=== PATIENT | female | born 1975 | race Caucasian/White ===

== ENCOUNTER → 2017-08-13 | Outpatient (CLI) | payer OTHER, BC ==
[~2017-08-13] MED LIST: ACETAMINOPHEN-1 EAC1 PO; ALEVE COLD & S1 EACH PO; CLONIDINE0.1 PO; COZAAR 25 MG TA25 MG PO; LANTUS SC; LEVAQUIN 500 M500 M2 PO; LEXAPRO 10 MG T10 M2 PO; MACROBID 100 M100 M1 PO; MAGOX 400400 MG PO; MEDROLDOSEPACK PO; METFORMIN HCL500 MG PO; NOVOLOG100 UNIT/1 SQ; OMEPRAZOLE10 MG PO; PROAIR HFA8.5 GM INH; PROMETHAZINE D480 ML PO; PULMICORT200 MCG IH; SINGULAIR 10 MG10 M1 PO; TESSALON PERLE100 MG PO; UNICOMPLEX M TA1 TA1 PO; ZOFRAN ODT4 MG PO
== END ==
LOC: M.RAD 09:24
DX: M47.896 Other spondylosis, lumbar region (principal)

== ENCOUNTER 2018-09-27 14:11 | Emergency (ER) | payer BC ==
[~2018-09-27] VITALS: Ht 154.9 cm; Wt 105.7 kg
[2018-09-27] MEDS ORDERED: KEFLEX500 M1 PO (14:33)
[2018-09-27] MEDS ORDERED: SSD CREAM 1% 5050 GM TOP (14:33)
[2018-09-27] MEDS ORDERED: NORCO 5-325 TA1 EACH PO (14:33)
[2018-09-27] MEDS ORDERED: IBUPROFEN 800800 M1 PO (14:33)
[2018-09-27 14:41] VITALS: BP 204/78
== END 2018-09-27 14:41 | disposition home or self-care (01) ==
LOC: M.ERS 14:11
DX: L55.0 Sunburn of first degree (principal); J45.909 Unspecified asthma, uncomplicated; Z90.89 Acquired absence of other organs; Z90.710 Acquired absence of both cervix and uterus; Z90.49 Acquired absence of other specified parts of digestive tract

== ENCOUNTER 2019-09-07 01:43 | Inpatient (IN) | payer BC ==
[2019-09-07] VITALS (7 sets, daily range): BP systolic 137–155; BP diastolic 53–69
[~2019-09-07] VITALS: Ht 154.9 cm; Wt 106.2 kg
[~2019-09-07 01:43] MED LIST changes: +IBUPROFEN 800800 M1 PO; +KEFLEX500 M1 PO; +NORCO 5-325 TA1 EACH PO; +SSD CREAM 1% 5050 GM TOP
[2019-09-07] MEDS ORDERED: PROTONIX40 M2 PO (02:00)
[2019-09-07] MEDS ORDERED: COZAAR 25 MG TA25 M1 PO (02:00)
[2019-09-07] MEDS ORDERED: SPIRONOLACTONE25 MG PO (02:01)
[2019-09-07] MEDS ORDERED: SPIRIVA INH (02:02)
[2019-09-07] MEDS ORDERED: METOPROLOL TART75 MG PO (02:03)
[2019-09-07] MEDS ORDERED: NORVASC 2.5 MG2.5 M1 PO (02:03)
[2019-09-07] MEDS ORDERED: TRESIBA100 UNIT/1 SUBQ (02:04)
[2019-09-07] MEDS ORDERED: KLOR-CON M2020 MEQ PO (02:05)
[2019-09-07] MEDS ORDERED: PHENAZOPYRIDIN200 M2 PO (02:07)
[2019-09-07] MEDS ORDERED: BACTRIM DS TAB1 EAC1 PO (02:09)
[2019-09-07 03:02] LABS: HEMATOCRIT 38.5 % (37.0-47.0); HEMOGLOBIN 13.1 gm/dL (12.0-15.0); MCH 27.1 pg (26.0-34.0); MCHC 34.1 g/dL (28.0-37.0); MCV 79.6 fL (80.0-100.0); MPV 9.6 fl. (7.2-11.1); NUCLEATED RBCS 0 /100WBC; PLATELET COUNT* 259 thou/uL (150-400); RBC 4.84 mil/uL (4.20-5.00); RDW-CV 15.5 % (10.5-14.5); WBC 14.9 thou/uL (4.0-11.0)
[2019-09-07 03:07] LABS: CALCIUM 9.2 mg/dL (8.5-10.1); CREATININE 1.2 mg/dL (0.6-1.3)
[2019-09-07 03:11] LABS: ALBUMIN 3.7 g/dL (3.4-5.0); MAGNESIUM 1.2 mg/dL (1.8-2.4); TOTAL BILIRUBIN 0.6 mg/dL (<0.1-1.0); TOTAL PROTEIN 7.7 g/dL (6.4-8.2)
--- NOTE | 2019-09-07 03:26 | NUR ---
PATIENT INFIRMED SEVERAL TIMES THAT A URINE SPECIMAN WAS NEEDED FOR TESTING. PATIENT STATES EACH TIME SHE CANNOT VOID. PATIENT RECEIVING IV SALINE AT THIS TIME.
[2019-09-07 03:49] LABS: URINE BLOOD NEGATIVE (Negative); URINE CLARITY CLEAR; URINE COLOR ORANGE; URINE GLUCOSE-RANDOM 1+ (Negative); URINE KETONES TRACE (Negative); URINE LEUKOCYTES-REFLEX NEGATIVE (Negative); URINE SPECIFIC GRAVITY 1.025 (1.005-1.030)
[2019-09-07 03:54] LABS: ACETEST (KETONE CONFIRMATORY) Negative (Negative); ICTOTEST (BILI CONFIRMATORY) Negative (Negative); URINE BILIRUBIN 1+ (Negative); URINE PROTEIN ND (Negative); URINE REDUCING SUBSTANCE NEGATIVE (Negative)
[2019-09-07 03:55] LABS: URINE NITRITE-REFLEX ND (Negative); URINE UROBILINOGEN ND E.U./dl (0.2-1.0)
[2019-09-07 04:00] LABS: CASTS None Seen /LPF (None Seen); MUCUS 0-3 Light strn/LPF (None Seen); SQUAMOUS 4-10 Moderate /LPF (0-3)
[2019-09-07 04:01] LABS: BACTERIA-REFLEX 1-9 Few /HPF (None Seen); CRYSTALS None Seen /LPF (None Seen); URINE RBC None Seen /HPF (0-2); URINE WBC-REFLEX 0-5 Rare /HPF (0-5)
[2019-09-07 04:04] LABS: ABSOLUTE EOSINOPHILS 0.1 thou/uL (0.0-0.7); ABSOLUTE LYMPHOCYTES 0.3 thou/uL (0.8-5.3); ABSOLUTE MONOCYTES 0.1 thou/uL (0.0-1.2); ABSOLUTE NEUTROPHILS 14.3 thou/uL (1.6-8.1)
[2019-09-07 04:05] LABS: PLATELET ESTIMATE ADEQUATE
[2019-09-07] MEDS ORDERED: NOVOLOG100 UNIT/1 SUBQ (06:22)
[2019-09-07] MEDS ORDERED: CARAFATE1 GM PO (06:22)
[2019-09-07] MEDS ORDERED: TRULICITY0.75 MG/0. (06:23)
[2019-09-07] MEDS ORDERED: TYLENOL PM EX-1 EACH PO (06:23)
[2019-09-07] MEDS ORDERED: HYDROCHLOROTHIA25 M2 PO (06:24)
--- NOTE | 2019-09-07 07:40 | NUR ---
RECEIVED PATIENT REPORT FROM ER NURSE JACK AT 0540. PATIENT BROUGHT UP TO FLOOR AT 0555. PATIENT ORIENTED TO UNIT, ROOM, BED, CALL-LIGHT, AND HOSPITAL POLICY. ASSESSMENT COMPLETED CHARTED. PATIENT IS NSR ON THE MONITOR. PATIENT REPORTED GENERALIZED PAIN. PHYSICIAN NOTIFIED, NEW ORDERS RECEIVED, SEE EMAR FOR DETAILS. FALL PRECAUTIONS IN PLACE FOR PATIENT SAFETY. HOURLY ROUNDING IN PLACE FOR PATIENT SAFETY. CLWR.
--- NOTE | 2019-09-07 18:06 | NUR ---
VSS.CHEMIST INSTRUMENTATION IN PLACE.PAIN MANAGED WELL WITH MEDICATIONS.NO N/V.DIET ADVANCED TO CARB CONTROL.CALL LIGHT WITHIN REACH.WILL CONTINUE TO MONITOR FOR DURATION OF SHIFT.
[2019-09-07] MEDS ORDERED: VENTOLIN HFA INH8 GM INH (22:08)
[2019-09-08] VITALS: BP 122/65
[2019-09-08 04:00] VITALS: BP 138/76
[2019-09-08 04:52] LABS: ABSOLUTE EOSINOPHILS 0.3 thou/uL (0.0-0.7); ABSOLUTE LYMPHOCYTES 1.8 thou/uL (0.8-5.3); ABSOLUTE MONOCYTES 0.3 thou/uL (0.0-1.2); ABSOLUTE NEUTROPHILS 4.1 thou/uL (1.6-8.1); BASOPHILS 0.3 %; EOSINOPHILS 4.7 %; HEMATOCRIT 36.4 % (37.0-47.0); HEMOGLOBIN 12.2 gm/dL (12.0-15.0); MCH 26.8 pg (26.0-34.0); MCHC 33.4 g/dL (28.0-37.0); MCV 80.2 fL (80.0-100.0); MONOCYTES 4.8 %; NUCLEATED RBCS 0 /100WBC; PLATELET COUNT* 220 thou/uL (150-400); POLYS 63.2 %; RBC 4.54 mil/uL (4.20-5.00); RDW-CV 15.2 % (10.5-14.5); WBC 6.5 thou/uL (4.0-11.0)
[2019-09-08 05:04] LABS: CREATININE 0.8 mg/dL (0.6-1.3); POTASSIUM 3.5 mmol/L (3.5-5.1)
--- NOTE | 2019-09-08 05:58 | NUR ---
PT IS ABLE TO COMMUNICATE HER NEEDS TO STAFF EFFECTIVELY. CURRENT PAIN MEDICATION REGIMEN HAS BEEN ADEQUATE FOR CONTROLLING HER PAIN UP TO THIS TIME. NO RECURRENT NAUSEA/ VOMITING REPORTED BY PT SO FAR THIS SHIFT. PT UP AD NAMRATA AND STEADY AT THIS TIME.
[2019-09-08 07:20] VITALS: BP 143/66
--- NOTE | 2019-09-08 09:28 | NUR ---
INCORRECT BLOOD SUGAR TAKEN AT 0911AM. DISREGARD
[2019-09-08 12:08] VITALS: BP 131/56
[2019-09-08 13:14] LABS: URINE BILIRUBIN NEGATIVE (Negative); URINE BLOOD NEGATIVE (Negative); URINE CLARITY CLEAR; URINE COLOR ORANGE; URINE GLUCOSE-RANDOM 1+ (Negative); URINE KETONES TRACE (Negative); URINE LEUKOCYTES-REFLEX TRACE (Negative); URINE PROTEIN 2+ (Negative); URINE UROBILINOGEN >= 8.0 E.U./dl (0.2-1.0)
[2019-09-08 13:15] LABS: URINE NITRITE-REFLEX POSITIVE (Negative)
[2019-09-08 13:17] LABS: BACTERIA-REFLEX 1-9 Few /HPF (None Seen); CASTS None Seen /LPF (None Seen); CRYSTALS None Seen /LPF (None Seen); MUCUS 0-3 Light strn/LPF (None Seen); SQUAMOUS 4-10 Moderate /LPF (0-3); URINE RBC 0-2 Rare /HPF (0-2); URINE WBC-REFLEX 6-15 Few /HPF (0-5)
--- NOTE | 2019-09-08 15:38 | NUR ---
CM SPOKE TO THE PT TO DISCUSS HER HOME SITUATION, DISCHAGRE PLANNING, AND TO INFORM OF THE ROLE OF CM. PT A&O, INDEPENDENT, AND ACTIVE. PT DOES NOT ANTICIPATE ANY D/C PLANNING NEEDS AT THIS TIME. CM WILL REMAIN AVAILABLE TO ASSIST AND FOLLOW NEEDED.
[2019-09-08 16:00] VITALS: BP 134/74
[2019-09-08 20:59] VITALS: BP 143/65
[2019-09-09] VITALS: BP 126/62
[2019-09-09 04:00] VITALS: BP 147/67
--- NOTE | 2019-09-09 05:50 | NUR ---
PT IS ABLE TO COMMUNICATE HER NEEDS TO STAFF EFFECTIVELY. CURRENT PAIN MEDICATION REGIMEN HAS BEEN ADEQUATE FOR CONTROLLING HER PAIN UP TO THIS TIME. POSSIBLE DISCHARGE LATER TODAY.
[2019-09-09 06:02] LABS: ABSOLUTE EOSINOPHILS 0.3 thou/uL (0.0-0.7); ABSOLUTE LYMPHOCYTES 2.4 thou/uL (0.8-5.3); ABSOLUTE MONOCYTES 0.4 thou/uL (0.0-1.2); ABSOLUTE NEUTROPHILS 4.7 thou/uL (1.6-8.1); BASOPHILS 0.2 %; EOSINOPHILS 3.4 %; HEMATOCRIT 31.7 % (37.0-47.0); HEMOGLOBIN 10.8 gm/dL (12.0-15.0); LYMPHOCYTES 31.2 %; MCH 27.4 pg (26.0-34.0); MCV 80.5 fL (80.0-100.0); MPV 8.9 fl. (7.2-11.1); NUCLEATED RBCS 0 /100WBC; PLATELET COUNT* 226 thou/uL (150-400); POLYS 60.2 %; RBC 3.94 mil/uL (4.20-5.00); RDW-CV 15.1 % (10.5-14.5); WBC 7.8 thou/uL (4.0-11.0)
[2019-09-09 06:10] LABS: CALCIUM 8.2 mg/dL (8.5-10.1); CREATININE 0.8 mg/dL (0.6-1.3); POTASSIUM 3.8 mmol/L (3.5-5.1)
[2019-09-09 08:16] VITALS: BP 135/72
[2019-09-09 11:14] VITALS: BP 135/72
[2019-09-09 11:49] VITALS: BP 145/55
--- NOTE | 2019-09-09 14:14 | NUR ---
Nutrition: Consult received for poor intake. Pt stated she hadn't been eating like normal d/t just not feeling well recently. She did eat lunch well today. She is near her usual wt of around 230#. CHO controlled diet. Meds, labs, hx noted. Likely to disch. Low nutrition risk.
[2019-09-09] MEDS ORDERED: AUGMENTIN 875-1 EACH PO (14:22)
--- NOTE | 2019-09-09 14:32 | NUR ---
NUTRITION: CONSULT RECEIVED FOR POOR INTAKE. PT DENIED POOR INTAKE, STATED SHE IS EATING VERY WELL. 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 CHO CONTROLLED DIET. NEAR USUAL WT OF ~230#. MEDS, LABS, HX NOTED. LOW NUTRITION RISK.
--- NOTE | 2019-09-09 14:50 | NUR ---
ASSUMED CARE OF PT AROUND 0730 THIS AM. REFER TO ASSESSMENT. PT EDUCATED ON DISCHARGE ORDERS AND VERBALIZES UNDERSTANDING. PT'S SPOUSE TRANSPORTED HOME AT THIS TIME. NO OTHER CONCERNS AT THIS TIME.
== END 2019-09-09 14:45 | disposition home or self-care (01) | DRG 638 ==
LOC: M.ERS 01:43 → M.TBA-ER 05:29 → M.2W 05:29
PROVIDERS: Emergency Medicine; ADMIT Internal Medicine
DX: E11.65 Type 2 diabetes mellitus with hyperglycemia (principal); N39.0 Urinary tract infection, site not specified; E87.1 Hypo-osmolality and hyponatremia; Z68.41 Body mass index [BMI] 40.0-44.9, adult; E86.0 Dehydration; E87.6 Hypokalemia; E83.42 Hypomagnesemia; I10 Essential (primary) hypertension; F41.9 Anxiety disorder, unspecified; E66.01 Morbid (severe) obesity due to excess calories; J45.909 Unspecified asthma, uncomplicated; Z90.49 Acquired absence of other specified parts of digestive tract; Z90.710 Acquired absence of both cervix and uterus; Z79.84 Long term (current) use of oral hypoglycemic drugs; Z79.4 Long term (current) use of insulin; Z79.899 Other long term (current) drug therapy; Z88.1 Allergy status to other antibiotic agents

== ENCOUNTER 2020-01-24 11:42 | Emergency (ER) | payer BC ==
[~2020-01-24] VITALS: Ht 154.9 cm; Wt 101.2 kg
[~2020-01-24 11:42] MED LIST changes: -KLOR-CON20 ME1 PO; -MAGNESIUM OXID240 MG PO
[2020-01-24] MEDS ORDERED: KLOR-CON20 ME1 PO (15:57)
[2020-01-24] MEDS ORDERED: MAGNESIUM OXID240 MG PO (15:57)
[2020-01-24 17:17] LABS: MAGNESIUM 1.8 mg/dL (1.8-2.4)
[2020-01-24 17:53] VITALS: BP 148/65
--- NOTE | 2020-01-25 12:59 | EKG ---
[place] [address] ELECTROCARDIOGRAM REPORT Name: MICHELINEKAYLA WALDEN Room: [facility]#: [id number] Admission: 01/24/20 Attend Phys: Discharge: 01/24/20 Date of : 75 Date of Service: 01/24/20 1158 Report #: [id number] THIS REPORT FOR: //name// [facility] ED Test Date: 2020-01-24 Test Time: 11:58:37 Pat Name: KAYLA DEL VALLE Department: Room: Gender: Publication Manager: [facility] : 1975 Requested By: Ryne Arias Order Number: [id number] MD: Leo Sexton Measurements Intervals [place] Rate: 62 P: -5 NE: 144 QRS: -16 QRSD: 103 T: 0 QT: 426 QTc: 433 Interpretive Statements Sinus rhythm Inferior infarct, old, possible Delayed R wave progression Baseline wander in lead(s) II,III,aVF No previous ECG available for comparison Electronically Signed On 01-25-2020 12:59:52 CDT by Leo Sexton [email or web address] <ELECTRONICALLY SIGNED> By: Leo Sexton MD, FACC 01/25/20 1259 1158 1158 Leo Sexton MD, [facility] /EPI
== END 2020-01-24 17:54 | disposition home or self-care (01) ==
LOC: M.ERS 11:42
PROVIDERS: Family Medicine
DX: E87.6 Hypokalemia (principal); E83.42 Hypomagnesemia; I10 Essential (primary) hypertension; E11.9 Type 2 diabetes mellitus without complications; J45.909 Unspecified asthma, uncomplicated; M79.7 Fibromyalgia; Z90.49 Acquired absence of other specified parts of digestive tract; Z90.710 Acquired absence of both cervix and uterus; Z79.4 Long term (current) use of insulin; Z88.1 Allergy status to other antibiotic agents

== ENCOUNTER → 2020-01-24 | Outpatient (CLI) | payer BC ==
[~2020-01-24] MED LIST changes: +AUGMENTIN 875-1 EACH PO; +BACTRIM DS TAB1 EAC1 PO; +CARAFATE1 GM PO; +COZAAR 25 MG TA25 M1 PO; +HYDROCHLOROTHIA25 M2 PO; +KLOR-CON M2020 MEQ PO; +KLOR-CON20 ME1 PO; +MAGNESIUM OXID240 MG PO; +METOPROLOL TART75 MG PO; +NORVASC 2.5 MG2.5 M1 PO; +NOVOLOG100 UNIT/1 SUBQ; +PHENAZOPYRIDIN200 M2 PO; +PROTONIX40 M2 PO; +SPIRIVA INH; +SPIRONOLACTONE25 MG PO; +TRESIBA100 UNIT/1 SUBQ; +TRULICITY0.75 MG/0.; +TYLENOL PM EX-1 EACH PO; +VENTOLIN HFA INH8 GM INH
[2020-01-24 10:21] LABS: CALCIUM 8.7 mg/dL (8.5-10.1); CREATININE 1.1 mg/dL (0.6-1.3); MAGNESIUM 1.4 mg/dL (1.8-2.4)
[2020-01-24 10:25] LABS: POTASSIUM 2.7 mmol/L (3.5-5.1)
== END ==
LOC: M.LAB 09:15
DX: Z00.00 Encounter for general adult medical examination without abnormal findings (principal)

== ENCOUNTER → 2020-01-25 | Outpatient (CLI) | payer BC ==
[~2020-01-25] MED LIST changes: +KLOR-CON20 ME1 PO; +MAGNESIUM OXID240 MG PO
[2020-01-25 12:24] LABS: CALCIUM 8.6 mg/dL (8.5-10.1); CREATININE 0.9 mg/dL (0.6-1.3); MAGNESIUM 1.6 mg/dL (1.8-2.4); POTASSIUM 3.6 mmol/L (3.5-5.1)
== END ==
LOC: M.LAB 10:47
DX: Z00.00 Encounter for general adult medical examination without abnormal findings (principal)

== ENCOUNTER 2020-02-19 11:54 | Emergency (ER) | payer BC ==
[~2020-02-19] VITALS: Ht 154.9 cm; Wt 87.5 kg
[2020-02-19 12:10] LABS: URINE BLOOD NEGATIVE (Negative); URINE CLARITY CLEAR; URINE COLOR YELLOW; URINE GLUCOSE-RANDOM NEGATIVE (Negative); URINE LEUKOCYTES-REFLEX NEGATIVE (Negative); URINE NITRITE-REFLEX NEGATIVE (Negative); URINE PROTEIN 2+ (Negative); URINE SPECIFIC GRAVITY 1.025 (1.005-1.030)
[2020-02-19 12:12] LABS: URINE BILIRUBIN 3+ (Negative); URINE KETONES 3+ (Negative)
[2020-02-19 12:13] LABS: ICTOTEST (BILI CONFIRMATORY) Positive (Negative)
[2020-02-19 12:19] LABS: SQUAMOUS >10 Many /LPF (0-3)
[2020-02-19 12:21] LABS: BACTERIA-REFLEX 1-9 Few /HPF (None Seen); MUCUS >6 Heavy strn/LPF (None Seen); URINE RBC None Seen /HPF (0-2); URINE WBC-REFLEX None Seen /HPF (0-5)
[2020-02-19 12:22] LABS: CRYSTALS None Seen /LPF (None Seen); HYALINE CASTS 0-3 Few /LPF (None Seen)
[2020-02-19 13:02] LABS: ABSOLUTE BASOPHILS 0.1 thou/uL (0.0-0.2); ABSOLUTE EOSINOPHILS 0.2 thou/uL (0.0-0.7); ABSOLUTE LYMPHOCYTES 1.5 thou/uL (0.8-5.3); ABSOLUTE MONOCYTES 0.7 thou/uL (0.0-1.2); ABSOLUTE NEUTROPHILS 7.7 thou/uL (1.6-8.1); BASOPHILS 0.6 %; EOSINOPHILS 1.5 %; HEMATOCRIT 40.1 % (37.0-47.0); HEMOGLOBIN 13.4 gm/dL (12.0-15.0); LYMPHOCYTES 14.8 %; MCH 26.1 pg (26.0-34.0); MCHC 33.3 g/dL (28.0-37.0); MCV 78.4 fL (80.0-100.0); MONOCYTES 7.2 %; MPV 10.4 fl. (7.2-11.1); NUCLEATED RBCS 0 /100WBC; PLATELET COUNT* 225 thou/uL (150-400); POLYS 75.9 %; RBC 5.11 mil/uL (4.20-5.00); RDW-CV 14.7 % (10.5-14.5); WBC 10.1 thou/uL (4.0-11.0)
[2020-02-19 13:19] LABS: CALCIUM 8.8 mg/dL (8.5-10.1); POTASSIUM 3.1 mmol/L (3.5-5.1)
[2020-02-19 13:32] LABS: MAGNESIUM 1.6 mg/dL (1.8-2.4); TOTAL BILIRUBIN 0.5 mg/dL (<0.1-1.0); TOTAL PROTEIN 7.2 g/dL (6.4-8.2)
--- NOTE | 2020-02-19 17:13 | EKG ---
[place] [address] ELECTROCARDIOGRAM REPORT Name: MICHELINEWINKAYLA Room: [facility]#: [id number] Admission: 02/19/20 Attend Phys: Discharge: Date of : 75 Date of Service: 02/19/20 1234 Report #: [id number] THIS REPORT FOR: //name// [facility] ED Test Date: 2020-02-19 Test Time: 12:34:45 Pat Name: KAYLA DEL VALLE Department: Room: Gender: Maintenance And Utilities Supervisor: [facility] : 1975 Requested By: Brinda Richards Order Number: [id number] MD: Waldemar Mcdonnell Measurements Intervals [place] Rate: 75 P: -11 TN: 149 QRS: -21 QRSD: 103 T: -10 QT: 387 QTc: 433 Interpretive Statements Sinus rhythm Probable left ventricular hypertrophy Inferior infarct, old Baseline wander in lead(s) II,III,aVR,aVL,aVF,V2,V3,V4 Compared to ECG 01/24/2020 11:58:37 Poor R-wave progression no longer present Myocardial infarct finding still present Electronically Signed On 02-19-2020 17:13:43 CDT by Waldemar Mcdonnell [email or web address] <ELECTRONICALLY SIGNED> By: Shelby Mcdonnell MD, [facility] 02/19/20 1713 1234 1234 Shelby Mcdonnell MD, [facility] /EPI
[2020-02-19 18:27] VITALS: BP 130/47
== END 2020-02-19 18:13 | disposition short-term general hospital (02) ==
LOC: M.ERS 11:54
PROVIDERS: Nurse Practitioner Family
DX: G89.18 Other acute postprocedural pain (principal); R11.0 Nausea; J45.909 Unspecified asthma, uncomplicated; E11.9 Type 2 diabetes mellitus without complications; M79.7 Fibromyalgia; I10 Essential (primary) hypertension; Z79.899 Other long term (current) drug therapy; Z79.4 Long term (current) use of insulin; Z88.1 Allergy status to other antibiotic agents; Z98.84 Bariatric surgery status; Z90.89 Acquired absence of other organs; Z90.710 Acquired absence of both cervix and uterus

== ENCOUNTER 2020-04-20 11:23 | Emergency (ER) | payer BC ==
[~2020-04-20] VITALS: Ht 154.9 cm; Wt 83.5 kg
[2020-04-20] MEDS ORDERED: SYMBICORT160 MCG/4. INH (11:51)
[2020-04-20] MEDS ORDERED: VITAMIN B-1100 M2 PO (11:51)
[2020-04-20] MEDS ORDERED: VITAMIN B-121000 MC2 SUBLING (11:52)
[2020-04-20 12:28] LABS: HEMATOCRIT 39.9 % (37.0-47.0); HEMOGLOBIN 12.8 gm/dL (12.0-15.0); MCH 26.3 pg (26.0-34.0); MCHC 32.2 g/dL (28.0-37.0); MCV 81.6 fL (80.0-100.0); NUCLEATED RBCS 0 /100WBC; PLATELET COUNT* 256 thou/uL (150-400); RBC 4.89 mil/uL (4.20-5.00); RDW-CV 16.2 % (10.5-14.5); WBC 13.7 thou/uL (4.0-11.0)
[2020-04-20 12:38] LABS: CREATININE 0.8 mg/dL (0.6-1.3); POTASSIUM 3.5 mmol/L (3.5-5.1)
[2020-04-20 12:42] LABS: ALBUMIN 3.4 g/dL (3.4-5.0); MAGNESIUM 1.8 mg/dL (1.8-2.4); TOTAL BILIRUBIN 0.6 mg/dL (<0.1-1.0); TOTAL PROTEIN 7.3 g/dL (6.4-8.2)
[2020-04-20 12:55] LABS: ABSOLUTE BASOPHILS 0.1 thou/uL (0.0-0.2); ABSOLUTE EOSINOPHILS 0.3 thou/uL (0.0-0.7); ABSOLUTE LYMPHOCYTES 0.4 thou/uL (0.8-5.3); ABSOLUTE MONOCYTES 0.7 thou/uL (0.0-1.2); ABSOLUTE NEUTROPHILS 12.2 thou/uL (1.6-8.1); ANISOCYTOSIS 1+; PLATELET ESTIMATE ADEQUATE; POIKILOCYTOSIS 1+
[2020-04-20 14:53] LABS: URINE BILIRUBIN NEGATIVE (Negative); URINE BLOOD 1+ (Negative); URINE CLARITY CLEAR; URINE COLOR YELLOW; URINE GLUCOSE-RANDOM NEGATIVE (Negative); URINE KETONES 2+ (Negative); URINE LEUKOCYTES-REFLEX NEGATIVE (Negative); URINE NITRITE-REFLEX NEGATIVE (Negative); URINE PROTEIN NEGATIVE (Negative); URINE SPECIFIC GRAVITY <= 1.005 (1.005-1.030); URINE UROBILINOGEN 0.2 E.U./dl (0.2-1.0)
[2020-04-20 14:58] LABS: SQUAMOUS >10 Many /LPF (0-3)
[2020-04-20 14:59] LABS: BACTERIA-REFLEX >30 Many /HPF (None Seen); URINE RBC 0-2 Rare /HPF (0-2); URINE WBC-REFLEX None Seen /HPF (0-5)
[2020-04-20 15:00] LABS: CASTS None Seen /LPF (None Seen); CRYSTALS None Seen /LPF (None Seen); MUCUS None Seen strn/LPF (None Seen)
[2020-04-20] MEDS ORDERED: PROTONIX40 M2 PO (16:18)
[2020-04-20] MEDS ORDERED: CARAFATE1 GM/10 ML PO (16:18)
[2020-04-20] MEDS ORDERED: FIBER GUMMIES1 EACH PO (16:19)
--- NOTE | 2020-04-20 16:48 | EKG ---
[place] [address] ELECTROCARDIOGRAM REPORT Name: KAYLA DEL VALLE Room: [facility]#: [id number] Admission: 04/20/20 Attend Phys: Discharge: Date of : 75 Date of Service: 04/20/20 1258 Report #: [id number] THIS REPORT FOR: //name// [facility] ED Test Date: 2020-04-20 Test Time: 12:58:28 Pat Name: KAYLA DEL VALLE Department: Room: Gender: Fruit Room Hand: [facility]ER[facility] : 1975 Requested By: Brinda Richards Order Number: [id number] MD: Leo Sexton Measurements Intervals [place] Rate: 87 P: 36 AL: 151 QRS: -17 QRSD: 88 T: 27 QT: 391 QTc: 471 Interpretive Statements Sinus rhythm Inferior infarct, old Compared to ECG 02/19/2020 12:34:45 No significant changes Electronically Signed On 04-20-2020 16:47:58 WARDROBE ASSISTANT by Leo Sexton [email or web address] <ELECTRONICALLY SIGNED> By: Leo Sexton MD, [facility] 04/20/20 1647 1258 1258 Leo Sexton MD, [facility] /EPI
[2020-04-20] MEDS ORDERED: FLAGYL500 M1 PO (17:37)
[2020-04-20] MEDS ORDERED: NORCO 5-325 TA1 EAC2 PO (17:38)
[2020-04-20] MEDS ORDERED: PROCTOCORT30 MG RECTAL (17:38)
[2020-04-20] MEDS ORDERED: CITRATE OF MAG296 M1 PO (17:42)
[2020-04-20 18:05] VITALS: BP 144/79
== END 2020-04-20 18:06 | disposition home or self-care (01) ==
LOC: M.ERS 11:23
PROVIDERS: Nurse Practitioner Family
DX: K56.41 Fecal impaction (principal); K62.89 Other specified diseases of anus and rectum; Z20.828 Contact with and (suspected) exposure to other viral communicable diseases; E11.9 Type 2 diabetes mellitus without complications; M79.7 Fibromyalgia; I10 Essential (primary) hypertension; J45.909 Unspecified asthma, uncomplicated; Z79.4 Long term (current) use of insulin; Z88.1 Allergy status to other antibiotic agents; Z88.8 Allergy status to other drugs, medicaments and biological substances; Z90.89 Acquired absence of other organs; Z90.710 Acquired absence of both cervix and uterus